=== PATIENT | female | born 1975 | race Caucasian/White ===

== ENCOUNTER 2025-05-25 19:37 | Emergency (ER) | payer OTHER ==
[~2025-05-25] VITALS: Ht 170.2 cm; Wt 81.6 kg
[2025-05-25] MEDS ORDERED: CEPH-570 PO (21:46)
[2025-05-25] MEDS ORDERED: SULF1TAB48 PO (21:46)
[2025-05-25] MEDS ORDERED: LIDOCAINE /MPF 1% VIAL 5 ML VIAL ONE (21:55)
[2025-05-25] MEDS: CEFTRIAXONE 1 G VIAL IM ONE (22:02)
[2025-05-25 23:06] VITALS: BP 126/70; TEMP 98.7; O2SAT 96
== END 2025-05-25 23:07 | disposition home or self-care (01) ==
LOC: ER 19:53
DX: L03.115 Cellulitis of right lower limb (principal); I10 Essential (primary) hypertension; Z59.00 Homelessness unspecified; Z88.1 Allergy status to other antibiotic agents
CPT/HCPCS: 99285; 93971; 96372; 73630; J0696; J3490